=== PATIENT | female | born 1960 ===

== ENCOUNTER 2017-11-04 08:24 | Emergency (ER) | payer BC, OTHER ==
[2017-11-04 08:25] VITALS: BMI 25.4
--- NOTE | 2017-11-04 08:55 | ED PDOC ---
Arrival/HPI - General Chief Complaint: ENT Problem Time Seen by Provider: 11/04/17 08:53 - History of Present Illness Narrative History of Present Illness (Text): 11/04/17 08:55 57 yo F with prior history of T12 compression fracture presents to ED with right trapezius pain that radiates to neck for past 3 days. Pt denies any injury and inciting factors. Pt states that right trapezius hurts with cervical ROM. Pt states that neck/throat is sore, but feels muscular. Pt denies any recent sick contacts. Pt denies CP, SOB, n/v, abdominal pain, fever, chills, change in voice, drooling, DO, dizziness, cough, sinus pain/congestion, or ear pain. Past Medical History - Provider Review Nursing Documentation Reviewed: Yes - Infectious Disease Hx of Infectious Diseases: None - Reproductive Menopause: Yes - Cardiac Hx Hypertension: Yes - Psychiatric Hx Psychophysiologic Disorder: No Hx Substance Use: No - Surgical History Hx Tubal Ligation: Yes - Anesthesia Hx Anesthesia: Yes Hx Anesthesia Reactions: No Hx Malignant Hyperthermia: No Family/Social History - Physician Review Nursing Documentation Reviewed: Yes Family/Social History: No Known Family HX Smoking Status: Never Smoked Hx Alcohol Use: No Hx Substance Use: No Allergies/Home Meds Allergies/Adverse Reactions: Allergies No Known Allergies Allergy (Verified 11/04/17 08:38) Home Medications: Home Meds Medication Instructions Recorded Confirmed hydroCHLOROthiazide [Microzide] 12.5 mg PO DAILY 06/26/16 06/26/16 Review of Systems - Physician Review All systems were reviewed & negative as marked: Yes - Review of Systems Constitutional: Normal. absent: Fatigue, Fevers, Night Sweats Eyes: Normal ENT: Sore Throat. absent: Hearing Changes, Rhinorrhea Respiratory: Normal. absent: SOB, Cough, Sputum Cardiovascular: Normal. absent: Chest Pain, Palpitations, Orthopnea, Syncope Gastrointestinal: Normal Genitourinary Female: Normal Musculoskeletal: Neck Pain, Myalgias. absent: Back Pain Skin: Normal Neurological: Normal Endocrine: Normal Hemo/Lymphatic: Normal Psychiatric: Normal Physical Exam Vital Signs Reviewed: Yes Vital Signs Temp Pulse Resp BP Pulse Ox 11/04/17 08:35 98.6 F 92 H 18 142/76 98 Temperature: Afebrile Blood Pressure: Normal Pulse: Regular Respiratory Rate: Normal Appearance: Positive for: Well-Appearing Pain Distress: Mild Mental Status: Positive for: Alert and Oriented X 3 - Systems Exam Head: Present: Atraumatic, Normocephalic Extroacular Muscles: Present: EOMI Ears: Present: Normal Mouth: Present: Moist Mucous Membranes. No: Drooling Pharnyx: Present: TONSILS ENLARGED. No: ERYTHEMA, EXUDATE, Peritonsilar Swelling, Uvular Deviation, Muffled/Hoarse Voice Nose (External): Present: Atraumatic Nose (Internal): Present: Normal Inspection Neck: Present: MIDLINE TENDERNESS, Paraspinal Tenderness, Trachea Midline. No: Normal Range of Motion (limited AROM/PROM), Meningeal Signs, Lymphadenopathy Respiratory/Chest: Present: Clear to Auscultation. No: Respiratory Distress, Accessory Muscle Use Cardiovascular: Present: Regular Rate and Rhythm, Normal S1, S2. No: Murmurs, Rub Abdomen: No: Tenderness, Distention, Peritoneal Signs, Rebound, Guarding Back: Present: Normal Inspection Upper Extremity: Present: Normal Inspection Lower Extremity: Present: Normal Inspection Neurological: Present: GCS=15 Skin: Present: Warm, Dry, Normal Color Psychiatric: Present: Alert, Oriented x 3 Medical Decision Making ED Course and Treatment: 11/04/17 09:04 Assessment: 57 yo F presents to ED with right trapezius/neck pain. Plan: - Cervical CT 11/04/17 09:[address] showed no evidence of acute fracture or dislocation. No CT evidence of significant spinal or neural foraminal. Results discussed with patient. PO decadron ordered for sore throat. Rx for Motrin and Flexeril. Advised patient to follow up with PMD and return to ED if symptoms worsen. - RAD Interpretation Radiology Orders: 11/04/17 08:54 CERVICAL SPINE W/O CONTRAST [CT] Stat - Medication Orders Current Medication Orders: Discontinued Medications Dexamethasone (Decadron) 4 mg PO STAT STA Stop: 11/04/17 09:35 Last Admin: 11/04/17 09:48 Dose: 4 mg Disposition/Present on Arrival - Present on Arrival Any Indicators Present on Arrival: No History of DVT/PE: No History of Uncontrolled Diabetes: No Urinary Catheter: No History of Decub. Ulcer: No History Surgical Site Infection Following: None - Disposition Have Diagnosis and Disposition been Completed?: Yes Diagnosis: Cervical strain Disposition: HOME/ ROUTINE Disposition Time: 09:43 Patient Plan: Discharge Patient Problems: Current Active Problems Problem Status Onset Cervical strain Acute Condition: GOOD Discharge Instructions (ExitCare): Cervical Muscle Strain (DC) Additional Instructions: 1. Use motrin for pain as needed; take with food 2. Use Flexeril for muscle spasms, do not operate heavy machinery while taking medication as it can make you sleepy 3. Use heating pad over neck and shoulder for spasm relief 4. Follow up with PMD 5. If symptoms worsen, return to ED (increased pain, stiff neck, radiating pain/ numbness in arms, DO/dizzieness) Prescriptions: Cyclobenzaprine [Cyclobenzaprine HCl] 5 mg PO Q8H PRN #15 tab PRN Reason: Muscle Spasm Ibuprofen [Motrin] 600 mg PO Q8H PRN #20 tab PRN Reason: Pain, Mild (1-3) Forms: [facility] (Maltese)
--- NOTE | 2017-11-04 09:27 | CT ---
PROCEDURE: CT Cervical Spine without contrast HISTORY: Cervical pain. COMPARISON: None available. TECHNIQUE: Axial computed tomography images were obtained of the cervical spine without the use of intravenous contrast. Coronal and sagittal reformatted images were created and reviewed. Radiation dose: Total exam DLP = 483.04 mGy-cm. This CT exam was performed using one or more of the following dose reduction techniques: Automated exposure control, adjustment of the mA and/or kV according to patient size, and/or use of iterative reconstruction technique. FINDINGS: VERTEBRAE: No fracture. Normal alignment. No destructive bony lesion. DISCS/SPINAL CANAL/NEURAL FORAMINA: No significant central canal or neural foraminal stenosis. Mild degenerative disc changes are noted. There is moderate narrowing of the intervertebral disc space noted at C7-T1. PARASPINAL SOFT TISSUES: Unremarkable. OTHER FINDINGS: None. IMPRESSION: No evidence of acute fracture or dislocation. No CT evidence of significant spinal or neural foraminal narrowing. Mild degenerative disc changes.
[2017-11-04 10:07] VITALS: BP 129/52; PULSE 79; RESP 20; TEMP 98.5; O2SAT 99
== END 2017-11-04 10:08 | disposition home or self-care (01) ==
LOC: ED 08:24
DX: S16.1XXA Strain of muscle, fascia and tendon at neck level, initial encounter (principal); X58.XXXA Exposure to other specified factors, initial encounter; Y92.9 Unspecified place or not applicable
CPT/HCPCS: 72125; 99283; J8540